=== PATIENT | female | born 1980 | race Caucasian/White ===

== ENCOUNTER → 2017-01-07 | Outpatient (CLI) | payer MEDICARE, MEDICAID ==
[2017-01-07 10:41] VITALS: BP 125/85
== END ==
LOC: MHUC 09:15
PROVIDERS: ATTEND Physician Assistant
DX: J01.00 Acute maxillary sinusitis, unspecified (principal)
CPT/HCPCS: 99213

== ENCOUNTER → 2017-02-08 | Outpatient (CLI) | payer MEDICARE, MEDICAID ==
[2017-02-08 14:36] VITALS: BP 130/88
== END ==
LOC: MHUC 12:01
PROVIDERS: ATTEND Physician Assistant
DX: J20.5 Acute bronchitis due to respiratory syncytial virus (principal)
CPT/HCPCS: 99214

== ENCOUNTER → 2017-02-08 | Outpatient (CLI) | payer MEDICARE, MEDICAID ==
[2017-02-08 13:10] LABS: BASOPHILS % (AUTO) 0 % (0-2); EOSINOPHILS # (AUTO) 0.1 10^3uL; EOSINOPHILS % (AUTO) 0 % (0-4); LYMPHOCYTES # (AUTO) 1.7 X10^3; MEAN CORPUSCULAR HEMOGLOBIN 30.7 PG (26.0-34.0); MEAN CORPUSCULAR HGB CONC 34.9 g/dL (31.0-37.0); MEAN CORPUSCULAR VOLUME 88 FL (80-100); MONOCYTES # (AUTO) 1.1 X10^3; MONOCYTES % (AUTO) 9 % (3-11); NEUTROPHILS # (AUTO) 8.7 X10^3; NEUTROPHILS % (AUTO) 75 % (51-67); PLATELET COUNT 323 10^3uL (150-450); WHITE BLOOD COUNT 11.57 10^3uL (4.0-11.0)
== END ==
LOC: LAB 12:31
PROVIDERS: ATTEND Physician Assistant
DX: R05 Cough (principal)
CPT/HCPCS: 36415; 71020; 85025; 87486; 87581; 87633; 87798